=== PATIENT | male | born 1935 | race Asian ===

== ENCOUNTER 2019-11-11 15:38 | Inpatient (IN) | payer MEDICARE, OTHER ==
[~2019-11-11] VITALS: Ht 162.6 cm; Wt 58.5 kg
[2019-11-11] MEDS ORDERED: ATOR80TA PO (16:03)
[2019-11-11] MEDS ORDERED: LORA-258 PO (16:03)
[2019-11-11] MEDS ORDERED: LEVE500T20 PO (16:03)
[2019-11-11] MEDS ORDERED: BUSP5TAB3 PO (16:03)
[2019-11-11] MEDS ORDERED: TAMS-3 PO (16:03)
[2019-11-11] MEDS ORDERED: QUET50TA PO (16:03)
[2019-11-11] MEDS ORDERED: METO25TA6 PO (16:03)
[2019-11-11] MEDS ORDERED: MIRT15TA7 PO (16:03)
[2019-11-11] MEDS ORDERED: PROM118S5 PO (16:03)
[2019-11-11 16:17] LABS: BASOPHILS % (AUTO) 0.9 % (0.0-2.0); EOSINOPHILS # (AUTO) 0.1 K/uL (0.0-0.7); EOSINOPHILS % (AUTO) 2.5 % (0.0-7.0); HEMOGLOBIN 11.6 g/dL (12.5-16.3); LYMPHOCYTES # (AUTO) 1.4 K/uL (20.0-40.0); LYMPHOCYTES % (AUTO) 38.1 % (20.5-51.5); MEAN CORPUSCULAR HEMOGLOBIN 31.4 uug (23.8-33.4); MEAN CORPUSCULAR HGB CONC 34 g/dL (32.5-36.3); MEAN CORPUSCULAR VOLUME 92.2 fL (73.0-96.2); MONOCYTES # (AUTO) 0.5 K/uL (2.0-10.0); MONOCYTES % (AUTO) 12.3 % (0.0-11.0); NEUTROPHILS # (AUTO) 1.8 K/uL (1.8-8.9); NEUTROPHILS % (AUTO) 46.2 % (38.5-71.5); PLATELET COUNT (AUTO) 125 K/uL (152-348); RED BLOOD CELL COUNT(AUTO) 3.69 MIL/uL (4.06-5.63); WHITE BLOOD COUNT (AUTO) 3.8 K/uL (3.6-10.2)
[2019-11-11 16:21] LABS: CARBON DIOXIDE 29 mmol/L (21-32); CHLORIDE 106 mmol/L (98-107); CREATININE 1.1 mg/dL (0.6-1.3); GLUCOSE 115 mg/dL (74-106); POTASSIUM 3.8 mmol/L (3.5-5.1); UREA NITROGEN, BLOOD 13 mg/dL (7-18)
[2019-11-11 16:35] LABS: ALANINE AMINOTRANSFERASE 14 U/L (16-63); ALKALINE PHOSPHATASE 72 U/L (50-136); ASPARTATE AMINOTRANSFERASE 17 U/L (15-37); BILIRUBIN,DIRECT 0.2 mg/dL (0.0-0.2); BILIRUBIN,TOTAL 0.7 mg/dL (0.2-1.0); TOTAL PROTEIN, SERUM 6.6 g/dL (6.4-8.2)
[2019-11-11 16:37] LABS: ACETAMINOPHEN < 2.0 ug/mL (10-30); ETHANOL < 3 MG/DL (0-0)
[2019-11-11 16:59] LABS: *BILIRUBIN,URIN NEGATIVE (NEGATIVE); *KETONES,URINE NEGATIVE (NEGATIVE); *UROBILINOGEN,URINE 0.2 E.U./dl (NORMAL); LEUKOCYTE ESTERASE ,URINE 1+ (NEGATIVE); NITRITE, URINE NEGATIVE (NEGATIVE); PH,URINE 6.5 (5.0-8.0); UGLUCOSE NEGATIVE (NEGATIVE)
[2019-11-11 17:06] LABS: *BLOOD, URINE TRACE (NEGATIVE)
[2019-11-11 17:15] LABS: *AMPHETAMINE, URINE NEGATIVE (NEGATIVE); *BARBITURATE, URINE NEGATIVE (NEGATIVE); *CANNABINOID, URINE NEGATIVE (NEGATIVE); *COCCAINE, URINE NEGATIVE (NEGATIVE); *OPIATE, URINE NEGATIVE (NEGATIVE); *PHENCYCLIDINE SCREEN,URINE NEGATIVE (NEGATIVE)
[2019-11-11 17:17] LABS: *CLARITY,URINE HAZY (CLEAR); *COLOR,URINE YELLOW (YELLOW)
--- NOTE | 2019-11-11 17:23 | NUR ---
CALLED KARLA MENDOZA FOR PSYCH EVAL. ETA ONE HOUR
--- NOTE | 2019-11-11 17:30 | NUR ---
PT REQUESTING FOR URINAL, PROVIDED, URINE SENT TO LAB
[2019-11-11 17:34] LABS: BACTERIA,URINE FEW /HPF (NONE SEEN)
[2019-11-11 17:35] LABS: SQUAMOUS EPITHELIAL CELL,UR FEW /HPF (NONE SEEN)
--- NOTE | 2019-11-11 19:15 | NUR ---
spoke with outgoing nurse, stated mrsa swab collected and sent to lab.
--- NOTE | 2019-11-11 20:32 | NUR ---
Pt. admitted to MHU , under care of Dr. PEDERSON/TERESA Coronado List completed.
--- NOTE | 2019-11-11 20:33 | NUR ---
REPORT GIVEN TO LORI SANCHEZ.
[2019-11-11] MEDS ORDERED: MAGNESIUM HYDROXIDE 30 ML LIQUID UDC PO PRN (20:45)
[2019-11-11] MEDS ORDERED: MAG HYDROX/AL HYDROX/SIMETH 30 ML LIQUID UDC PO PRN (20:45)
[2019-11-11 22:02] VITALS: BP 165/84
[2019-11-11] MEDS ORDERED: [UNRECOGNIZED DRUG - OTHER] PO PRN (22:15)
[2019-11-11] MEDS ORDERED: D METHORPHAN HB PO PRN (22:15)
[2019-11-11] MEDS ORDERED: PROMETH HCL PO PRN (22:15)
--- NOTE | 2019-11-12 00:31 | NUR ---
GPS/RN: PT IS 84/YRS OLD MALE, BROUGHT TO MHU FROM ER VIA GURNEY AND ACCOMPANIED BY ER STAFF. PT ADMITTED ON A 5150 FOR GD, DTO. UNDER THE CARE OF DACIA PRITCHETT AND ATTENDING JODIE MOORE WITH PSYCHOSIS DX. PT A/OX2, SPEAKS SOME [place]. PER ADMISSION PT WAS AGGRESSIVE, AGITATION AND REFUSED MEDICATION OR FOODS FOR DAYS, AND THROW CUP OF WATER ON STAFFS WHEN ATTEMPTED TO PROVIDED CARE. UPON FACE TO FACE INTERVIEW, PT WAS UNCOOPERATIVE AND WAS VERY ANGRY WITH STAFFS OVER HIS SHOES. PT WAS UNABLE TO RESPOND TO QUESTIONS AND UNWILLING TO FOLLOW DIRECTION. V/S WAS STABLE EXCEPT BLOOD PRESSURE WHICH WAS A BIT ELEVATED. PT HX OF DX ARE: EPILEPSY, HTN, GERD, BPH, MAJOR DEPRESSION, SCHIZOPHRENIA, UTI, DEMENTIA AND WEAKNESS ON BLE AND DIFFICULTY WALKING. PT UNABLE TO STATE SI OR INTENT AT THIS TIME. PT BEHAVIOR WAS MANAGED WITH DEESCALATING BY LETTING HIM HAVE HIS SHOES WITHOUT SHOELACE. FAMILY/DAUGHTER WAS NOTIFIED OF ADMISSION. PT WILL BE MONITOR FOR SAFETY DUE TO BLE WEAKNESS AND UNSTABLE GAIT. ADVISEMENT WAS READ TO PT AND GIVEN, WITH NEW ADMISSION PACKAGE, PT RIGHT AND HAND BOOK IN BEDSIDE. Q15/MINS HEAD CHECK INITIATED AND ONGOING.
--- NOTE | 2019-11-12 06:31 | NUR ---
PT SLEPT ABOUT FOUR HOURS DURING NIGHT, PT AWAKE FREQUENTLY TO URINATE AT NIGHT, URINE COLOR DARK TAE YELLOWISH. REFUSED FOOD AND MEDICATIONS LAST NIGHT.
[2019-11-12 07:30] VITALS: BP 148/72
--- NOTE | 2019-11-12 08:46 | NUR ---
CALLED AND SPOKE WITH DR. MEEKS FOR PODIATRY CONSULT
[2019-11-12] MEDS: levETIRAcetam 500 MG TABLET PO SCH ×2 (09:25→16:59)
[2019-11-12] MEDS: METOPROLOL TARTRATE 25 MG TABLET PO SCH ×2 (09:27→17:00)
[2019-11-12] MEDS ORDERED: GUAIFENESIN/DEXTROMETHORPHAN 5 ML UDC PO PRN (09:45)
[2019-11-12] MEDS: CEphaleXIN 500 MG CAPSULE PO SCH ×2 (13:18→21:12)
[2019-11-12] MEDS: LORAZEPAM 1 MG TABLET PO PRN (13:27)
--- NOTE | 2019-11-12 13:52 | NUR ---
Family Contact: SW called the pts daughter, Deisy ([phone]), and received collateral information for the psychosocial assessment as the pt was too confused and disorganized to participate.
--- NOTE | 2019-11-12 14:35 | NUR ---
Initial Discharge Plan: Pt currently resides at [facility] located [place] [address] [place] [address]; . Per pts daughter, she would like the pt to return to the facility. SW will work with the pt and the MD regarding appropriate discharge planning. SW will form a safe and proper discharge.
--- NOTE | 2019-11-12 15:29 | NUR ---
Facility Contact: NATHANAEL contacted [facility] ([phone]) and left a message for Mya and confirmed that the pt can return to the facility once he is stable for discharge.
[2019-11-12 16:00] VITALS: BP 126/59
[2019-11-12 20:20] VITALS: BP 112/66
[2019-11-12] MEDS: DIVALPROEX 250 MG TABLET.DR PO SCH (21:12)
[2019-11-12] MEDS: ATORVASTATIN 40 MG TABLET PO SCH (21:12)
[2019-11-12] MEDS: risperiDONE 0.5 MG TABLET PO SCH (21:12)
[2019-11-12] MEDS: MIRTAZAPINE 15 MG TABLET PO SCH (21:12)
[2019-11-12] MEDS: TAMSULOSIN HCL 0.4 MG CAP.SR.24H PO SCH (21:12)
[2019-11-13] MEDS: CEphaleXIN 500 MG CAPSULE PO SCH ×3 (06:02→22:00)
[2019-11-13 07:30] VITALS: BP 117/73
[2019-11-13] MEDS: DIVALPROEX 250 MG TABLET.DR PO SCH ×2 (09:30→21:00)
[2019-11-13] MEDS: risperiDONE 0.5 MG TABLET PO SCH ×2 (09:31→21:00)
[2019-11-13] MEDS: METOPROLOL TARTRATE 25 MG TABLET PO SCH ×2 (09:31→17:00)
[2019-11-13] MEDS: levETIRAcetam 500 MG TABLET PO SCH ×2 (09:31→17:20)
[2019-11-13] MEDS: LORAZEPAM 1 MG TABLET PO PRN (13:29)
[2019-11-13 18:00] VITALS: BP 101/55
[2019-11-13 20:00] VITALS: BP 111/60
[2019-11-13] MEDS: TAMSULOSIN HCL 0.4 MG CAP.SR.24H PO SCH (21:00)
[2019-11-13] MEDS: MIRTAZAPINE 15 MG TABLET PO SCH (21:00)
[2019-11-13] MEDS: ATORVASTATIN 40 MG TABLET PO SCH (21:00)
--- NOTE | 2019-11-13 21:20 | NUR ---
Received patient while sitting in homa chair.Seems agitated, not compliant with medication. Started yelling when offering medications.Not-redirectable. Continue to monitor.
--- NOTE | 2019-11-14 04:21 | NUR ---
Patient refused all the medications including Depakote 250 mg, Flomax 0.4 mg, Lipitor 80 mg, Remeron 15 mg, Risperidone 0.5 mg, and Keflex 500 mg. Medications offered multiple times, each time he got upset and refused. Remeron and Risperidone were wasted because already opened, but the rest were returned. Dr. Elmore was aware about the refusing medications.
[2019-11-14] MEDS: CEphaleXIN 500 MG CAPSULE PO SCH ×3 (06:00→22:40)
--- NOTE | 2019-11-14 06:31 | NUR ---
Patient refused Keflex 500 mg. risks and benefits explained, still refused. The medication was returned.
[2019-11-14 07:30] VITALS: BP 123/74
--- NOTE | 2019-11-14 08:00 | NUR ---
Received patient by the nurses station sitting on homa-chair. No acute distress. Vital signs stable. Safety measures in place and will continue with care.
[2019-11-14] MEDS: METOPROLOL TARTRATE 25 MG TABLET PO SCH ×2 (09:00→17:00)
[2019-11-14] MEDS: DIVALPROEX 250 MG TABLET.DR PO SCH ×2 (10:15→20:17)
[2019-11-14] MEDS: risperiDONE 0.5 MG TABLET PO SCH ×2 (10:15→20:17)
[2019-11-14] MEDS: levETIRAcetam 500 MG TABLET PO SCH ×2 (10:15→17:26)
--- NOTE | 2019-11-14 13:30 | NUR ---
NATHANAEL Group Note: NATHANAEL conducted group therapy on Sunday11/14/2019 at 1330. The group topic was discharge planning. SW deemed the pt inappropriate for group participation due to confusion and his disorganized mental state. Pt is currently in a homa chair.
[2019-11-14] MEDS: ACETAMINOPHEN 325 MG TABLET PO PRN (14:57)
[2019-11-14 15:32] VITALS: BP 109/65
[2019-11-14] MEDS: LORAZEPAM 1 MG TABLET PO PRN (15:42)
--- NOTE | 2019-11-14 15:50 | NUR ---
Patient administered Ativan 1mg PO q 4hrs and tolerated well.
--- NOTE | 2019-11-14 18:30 | NUR ---
Patient is AAO x1, with episodes of confusion and agitation at times. Patient was cooperative with care, compliant with medication therapy and tolerated well. Skin kept clean and dry. Patient ambulatory but with assistance and BRP. Patient is with maximum assist for care. Skin kept clean and dry. Assisted with feeding. Patient ate well during shift. Safety measures in place, needs attended and will continue with care.
[2019-11-14] MEDS: TAMSULOSIN HCL 0.4 MG CAP.SR.24H PO SCH (20:17)
[2019-11-14] MEDS: ATORVASTATIN 40 MG TABLET PO SCH (20:17)
[2019-11-14] MEDS: MIRTAZAPINE 15 MG TABLET PO SCH (20:17)
[2019-11-14 21:08] VITALS: BP 110/61
[2019-11-15] MEDS: CEphaleXIN 500 MG CAPSULE PO SCH ×3 (06:27→21:20)
[2019-11-15 07:30] VITALS: BP 118/68
[2019-11-15] MEDS: LORAZEPAM 1 MG TABLET PO PRN ×2 (08:22→14:33)
[2019-11-15] MEDS: risperiDONE 0.5 MG TABLET PO SCH ×2 (08:41→20:10)
[2019-11-15] MEDS: DIVALPROEX 250 MG TABLET.DR PO SCH ×2 (08:41→20:11)
[2019-11-15] MEDS: levETIRAcetam 500 MG TABLET PO SCH ×2 (08:41→16:30)
[2019-11-15] MEDS: METOPROLOL TARTRATE 25 MG TABLET PO SCH ×2 (08:42→17:11)
[2019-11-15] MEDS: ACETAMINOPHEN 325 MG TABLET PO PRN (13:17)
[2019-11-15 16:00] VITALS: BP 118/63
--- NOTE | 2019-11-15 16:54 | NUR ---
GPS: Nursing Notes: Destructive Behavior Toward Others: Patient is awake and responding to his name, impaired judgment, resistant with nursing care, confused, restless, constantly trying to slide down the homa chair, unsteady gait, redirected and reoriented to reality, but gets easily irritable when redirected, grabbing peers when passing closed to him, garble and pressured speech, poor impulse control, unsteady gait, but constantly trying to stand up, when assisting him with ADL's, patient gets angry and starts pushing staff away, unable to formulate a viable plan for self care, continue with treatment plan.
[2019-11-15 20:00] VITALS: BP 121/57
[2019-11-15] MEDS: TAMSULOSIN HCL 0.4 MG CAP.SR.24H PO SCH (20:11)
[2019-11-15] MEDS: MIRTAZAPINE 15 MG TABLET PO SCH (20:11)
[2019-11-15] MEDS: ATORVASTATIN 40 MG TABLET PO SCH (20:11)
[2019-11-16] MEDS: CEphaleXIN 500 MG CAPSULE PO SCH ×3 (05:43→21:29)
--- NOTE | 2019-11-16 06:08 | NUR ---
Remain calm and cooperative with meds and care. continue on atb for uti.encouraged po intake. slept 7:30 through the night. assisted with adl's. resting in bed comfortably.
[2019-11-16 07:15] LABS: BASOPHILS % (AUTO) 0.6 % (0.0-2.0); EOSINOPHILS # (AUTO) 0.2 K/uL (0.0-0.7); EOSINOPHILS % (AUTO) 4.1 % (0.0-7.0); HEMATOCRIT 34.9 % (36.7-47.1); HEMOGLOBIN 11.9 g/dL (12.5-16.3); LYMPHOCYTES # (AUTO) 1.2 K/uL (20.0-40.0); LYMPHOCYTES % (AUTO) 27.1 % (20.5-51.5); MEAN CORPUSCULAR HEMOGLOBIN 31.3 uug (23.8-33.4); MEAN CORPUSCULAR HGB CONC 34 g/dL (32.5-36.3); MEAN CORPUSCULAR VOLUME 91.9 fL (73.0-96.2); MONOCYTES # (AUTO) 0.5 K/uL (2.0-10.0); NEUTROPHILS # (AUTO) 2.6 K/uL (1.8-8.9); NEUTROPHILS % (AUTO) 57.2 % (38.5-71.5); PLATELET COUNT (AUTO) 140 K/uL (152-348); WHITE BLOOD COUNT (AUTO) 4.5 K/uL (3.6-10.2)
[2019-11-16 07:30] VITALS: BP 136/72
[2019-11-16 07:35] LABS: BILIRUBIN,TOTAL 0.7 mg/dL (0.2-1.0); CREATININE 0.9 mg/dL (0.6-1.3); POTASSIUM 3.9 mmol/L (3.5-5.1); TOTAL PROTEIN, SERUM 6.2 g/dL (6.4-8.2)
[2019-11-16] MEDS: risperiDONE 0.5 MG TABLET PO SCH ×2 (08:58→20:20)
[2019-11-16] MEDS: levETIRAcetam 500 MG TABLET PO SCH ×2 (08:58→18:12)
[2019-11-16] MEDS: DIVALPROEX 250 MG TABLET.DR PO SCH ×2 (08:58→20:20)
[2019-11-16] MEDS: METOPROLOL TARTRATE 25 MG TABLET PO SCH ×2 (08:59→17:00)
[2019-11-16] MEDS: LORAZEPAM 1 MG TABLET PO PRN ×2 (15:15→21:29)
[2019-11-16 16:35] VITALS: BP 101/53
[2019-11-16] MEDS: MIRTAZAPINE 15 MG TABLET PO SCH (20:20)
[2019-11-16] MEDS: ATORVASTATIN 40 MG TABLET PO SCH (20:20)
[2019-11-16] MEDS: TAMSULOSIN HCL 0.4 MG CAP.SR.24H PO SCH (20:20)
[2019-11-16 20:29] VITALS: BP 100/53
[2019-11-16] MEDS: TEMAZEPAM 7.5 MG CAPSULE PO PRN (22:57)
[2019-11-17] MEDS: CEphaleXIN 500 MG CAPSULE PO SCH ×3 (05:37→21:49)
--- NOTE | 2019-11-17 06:16 | NUR ---
Slept 8.00 hours last night.
[2019-11-17 07:30] VITALS: BP 154/80
[2019-11-17] MEDS: levETIRAcetam 500 MG TABLET PO SCH ×3 (09:00→17:05)
[2019-11-17] MEDS: DIVALPROEX 250 MG TABLET.DR PO SCH ×3 (09:00→20:06)
[2019-11-17] MEDS: METOPROLOL TARTRATE 25 MG TABLET PO SCH ×3 (09:00→17:00)
[2019-11-17] MEDS: risperiDONE 0.5 MG TABLET PO SCH ×3 (09:00→20:05)
[2019-11-17] MEDS: LORAZEPAM 1 MG TABLET PO PRN ×2 (12:35→17:05)
[2019-11-17] MEDS: ACETAMINOPHEN 325 MG TABLET PO PRN ×2 (12:35→22:14)
[2019-11-17 16:00] VITALS: BP 109/58
--- NOTE | 2019-11-17 17:53 | NUR ---
GPS: Nursing Notes: Thought disorder: Patient is awake and responding to his name, impaired judgment, resistant with nursing care, trying to slide down the homa chair, poor impulse control at times, episodes of pulling his diaper and throwing on the floor, confused, unable to formulate a viable plan for self care, minimal participation in therapeutic groups, continue with treatment plan.
[2019-11-17 20:00] VITALS: BP 101/60
[2019-11-17] MEDS: ATORVASTATIN 40 MG TABLET PO SCH (20:05)
[2019-11-17] MEDS: MIRTAZAPINE 15 MG TABLET PO SCH (20:05)
[2019-11-17] MEDS: TAMSULOSIN HCL 0.4 MG CAP.SR.24H PO SCH (20:06)
[2019-11-18] MEDS: LORAZEPAM 1 MG TABLET PO PRN ×3 (03:27→12:41)
[2019-11-18] MEDS: CEphaleXIN 500 MG CAPSULE PO SCH ×3 (05:31→21:05)
--- NOTE | 2019-11-18 06:31 | NUR ---
PT SLEPT HOURS. PT IN NO ACUTE DISTRESS. PT PRESCRIBED MEDICATION GIVEN AND PT TOLERATED IT WELL. PT GIVEN TYLENOL PRN AT 2214H. RESTORIL GIVEN AT 2257H GIVEN PER NURSE ASSESSMENT. ATIVAN GIVEN PRN AT 0327H . PT YELLING,AND AGItATED. AFTER AN HOUR PT CALM DOWN AND WENT BACK TO SLEEP. PT TOLERATED IT WELL. . PT CONFUSED. NEEEDS REORIENTATION AND REDIRECTION. PT NEEDS ASSIST IN AMBULATING. PT GETTING OUT OF THE BED.PT TURNED AND REPOSITIONED.PT took a bath. SAFETY AND COMFORT PROVIDED. WILL ENDORSE TO INCOMING NURSE FOR CONTINUITY OF CARE. Addendum: 11/18/19 at 0632 by ARTURO ABRAMS RN NEED TO PUT 9HOURS OF SLEEP.
--- NOTE | 2019-11-18 06:32 | NUR ---
PT SLEPT 9 HOURS. PT IN NO ACUTE DISTRESS. PT PRESCRIBED MEDICATION GIVEN AND PT TOLERATED IT WELL. PT GIVEN TYLENOL PRN AT 2214H. RESTORIL GIVEN AT 2257H GIVEN PER NURSE ASSESSMENT. ATIVAN GIVEN PRN AT 0327H . PT YELLING,AND AGITATED. AFTER AN HOUR PT CALM DOWN AND WENT BACK TO SLEEP. PT TOLERATED IT WELL. . PT CONFUSED. NEEDS REORIENTATION AND REDIRECTION. PT NEEDS ASSIST IN AMBULATING. PT GETTING OUT OF THE BED.PT TURNED AND REPOSITIONED.PT TOOK A BATH. SAFETY AND COMFORT PROVIDED. WILL ENDORSE TO INCOMING NURSE FOR CONTINUITY OF CARE.
[2019-11-18 07:30] VITALS: BP 111/66
[2019-11-18] MEDS: DIVALPROEX 250 MG TABLET.DR PO SCH ×2 (09:06→21:04)
[2019-11-18] MEDS: levETIRAcetam 500 MG TABLET PO SCH ×2 (09:06→16:59)
[2019-11-18] MEDS: risperiDONE 0.5 MG TABLET PO SCH ×2 (09:06→21:05)
[2019-11-18] MEDS: METOPROLOL TARTRATE 25 MG TABLET PO SCH ×2 (09:07→17:00)
--- NOTE | 2019-11-18 10:20 | NUR ---
Probable Cause (PC) Hearing: Pts hold was upheld for grave disability.
[2019-11-18] MEDS: ACETAMINOPHEN 325 MG TABLET PO PRN (12:41)
--- NOTE | 2019-11-18 12:43 | NUR ---
Family Contact: NATHANAEL called the pts daughter, Deisy ([phone]), and provided her with an update on the pt. SW informed her that the pt is still confused but appears to be less aggressive. NATHANAEL also stated that the pt has been in a gerichair for a majority of the time. NATHANAEL confirmed that the discharge plan is still for the pt to be discharged back to [facility].
--- NOTE | 2019-11-18 12:52 | NUR ---
Facility Contact: NATHANAEL contacted [facility] ([phone]) and spoke to Winnie YapTime, who stated that the pt will be allowed to return but her servicenow administrator will have to readmit. NATHANAEL went over the medication changes with her and also informed her of the pts progress. NATHANAEL then asked if there is anything else that needs to be provided upon admission and it was stated that the pt needs to have a COVID test. NATHANAEL stated that she will get one for the pt.
[2019-11-18 15:14] VITALS: BP 140/68
[2019-11-18 20:00] VITALS: BP 136/59
--- NOTE | 2019-11-18 20:10 | NUR ---
Patient received into sitting in hallway in Linda-chair. Patient is alert/oriented x1 and has no s/s of acute distress or discomfort noted/observed by this nurse. All safety, fall, and GPS/MHU precautions are in place. Will continue to monitor and assess.
[2019-11-18] MEDS: TEMAZEPAM 7.5 MG CAPSULE PO PRN (21:05)
[2019-11-18] MEDS: TAMSULOSIN HCL 0.4 MG CAP.SR.24H PO SCH (21:05)
[2019-11-18] MEDS: ATORVASTATIN 40 MG TABLET PO SCH (21:05)
[2019-11-18] MEDS: MIRTAZAPINE 15 MG TABLET PO SCH (21:06)
[2019-11-19] MEDS: CEphaleXIN 500 MG CAPSULE PO SCH (06:05)
--- NOTE | 2019-11-19 06:40 | NUR ---
Patient slept 6 hours with no s/s of acute distress or discomfort noted or observed by this nurse. Pt was compliant with all medical, medication, and diet. Pt is currently still asleep in bed. All safety, fall, GPS/MHU, and fall precaution measures remain in place.
[2019-11-19 07:30] VITALS: BP 115/72
[2019-11-19] MEDS: CLONAZEPAM 0.5 MG TABLET PO SCH (09:23)
[2019-11-19] MEDS: DIVALPROEX 250 MG TABLET.DR PO SCH ×2 (09:24→20:44)
[2019-11-19] MEDS: METOPROLOL TARTRATE 25 MG TABLET PO SCH ×2 (09:25→17:00)
[2019-11-19] MEDS: levETIRAcetam 500 MG TABLET PO SCH ×2 (09:25→17:07)
[2019-11-19] MEDS: risperiDONE 0.5 MG TABLET PO SCH ×2 (09:25→20:44)
[2019-11-19 16:00] VITALS: BP 102/58
[2019-11-19 20:21] VITALS: BP 123/61
[2019-11-19] MEDS: TAMSULOSIN HCL 0.4 MG CAP.SR.24H PO SCH (20:44)
[2019-11-19] MEDS: MIRTAZAPINE 15 MG TABLET PO SCH (20:44)
[2019-11-19] MEDS: ATORVASTATIN 40 MG TABLET PO SCH (20:44)
--- NOTE | 2019-11-20 03:23 | NUR ---
Received patient while sitting in homa chair.Calm and cooperative. Compliant with medication. No behavioral issues. Redirectable. Continue to monitor.
[2019-11-20 07:30] VITALS: BP 120/69
[2019-11-20] MEDS: CLONAZEPAM 0.5 MG TABLET PO SCH (08:21)
[2019-11-20] MEDS: risperiDONE 0.5 MG TABLET PO SCH ×2 (08:22→20:11)
[2019-11-20] MEDS: DIVALPROEX 250 MG TABLET.DR PO SCH ×2 (08:22→20:11)
[2019-11-20] MEDS: METOPROLOL TARTRATE 25 MG TABLET PO SCH ×2 (08:22→17:23)
[2019-11-20] MEDS: levETIRAcetam 500 MG TABLET PO SCH ×2 (08:22→17:22)
[2019-11-20 15:25] VITALS: BP 132/56
[2019-11-20] MEDS: LORAZEPAM 1 MG TABLET PO PRN ×2 (15:35→21:44)
[2019-11-20] MEDS: TAMSULOSIN HCL 0.4 MG CAP.SR.24H PO SCH (20:11)
[2019-11-20] MEDS: MIRTAZAPINE 15 MG TABLET PO SCH (20:11)
[2019-11-20] MEDS: ATORVASTATIN 40 MG TABLET PO SCH (20:12)
--- NOTE | 2019-11-20 20:31 | NUR ---
Patient received while sitting in homa chair.Calm and cooperative. Compliant with medication. No behavioral issues. Redirectable. Continue to monitor.
[2019-11-20 20:53] VITALS: BP 110/60
[2019-11-20] MEDS: ACETAMINOPHEN 325 MG TABLET PO PRN (21:45)
[2019-11-21 07:30] VITALS: BP 128/73
[2019-11-21] MEDS: risperiDONE 0.5 MG TABLET PO SCH ×2 (08:41→21:12)
[2019-11-21] MEDS: DIVALPROEX 250 MG TABLET.DR PO SCH ×2 (08:41→21:12)
[2019-11-21] MEDS: levETIRAcetam 500 MG TABLET PO SCH ×2 (08:41→16:38)
[2019-11-21] MEDS: METOPROLOL TARTRATE 25 MG TABLET PO SCH ×2 (08:41→16:38)
[2019-11-21] MEDS: CLONAZEPAM 0.5 MG TABLET PO SCH ×2 (08:42→21:18)
[2019-11-21] MEDS: LORAZEPAM 1 MG TABLET PO PRN (14:29)
[2019-11-21 15:29] VITALS: BP 120/58
--- NOTE | 2019-11-21 15:50 | NUR ---
Family Contact: NATHANAEL called the pts daughter, Deisy ([phone]), and informed her that the pt is going to be discharged on Sunday back to [facility].
--- NOTE | 2019-11-21 16:20 | NUR ---
Facility Contact: NATHANAEL contacted [facility] ([phone]) and confirmed with a Med Tech that the pt can be discharged back to the facility on Sunday.
--- NOTE | 2019-11-21 17:33 | NUR ---
Received patient sleeping in bed in stable condition. Patient transfer to Linda chair for safety. Patient noted hitting the staff and slumming the gerichair table. Patient ativan 1mg PRN given with good effect. will continue monitor for safety.
[2019-11-21 20:00] VITALS: BP 128/68
[2019-11-21] MEDS: TAMSULOSIN HCL 0.4 MG CAP.SR.24H PO SCH (21:12)
[2019-11-21] MEDS: MIRTAZAPINE 15 MG TABLET PO SCH (21:12)
[2019-11-21] MEDS: ATORVASTATIN 40 MG TABLET PO SCH (21:13)
--- NOTE | 2019-11-22 07:26 | NUR ---
PATIENT AWAKE BUT CONFUSED, NO S/S OF PAIN NOTED. PATIENT HAS EPISODE OF RESTLESS IN BED, TAKES OUT DIAPER, AND CLOTHING, REDIRECT PATIENT, BUT NOT EFFECTIVE, FREQUENT VISUAL CHECK DONE, CONT TO MONITOR.
[2019-11-22 07:30] VITALS: BP 115/58
[2019-11-22] MEDS: risperiDONE 0.5 MG TABLET PO SCH ×2 (08:26→20:41)
[2019-11-22] MEDS: levETIRAcetam 500 MG TABLET PO SCH ×2 (08:27→16:05)
[2019-11-22] MEDS: CLONAZEPAM 0.5 MG TABLET PO SCH ×2 (08:27→20:46)
[2019-11-22] MEDS: DIVALPROEX 250 MG TABLET.DR PO SCH ×2 (08:28→20:41)
[2019-11-22] MEDS: METOPROLOL TARTRATE 25 MG TABLET PO SCH ×2 (08:28→16:05)
--- NOTE | 2019-11-22 08:50 | NUR ---
GPS: RECEIVED PATIENT AOX1, MALTESE SPEAKING ONLY, CALM COOPERATIVE, PATIENT COMPLIANT WITH MEDICATION
--- NOTE | 2019-11-22 09:07 | NUR ---
PATIENT WAS PUT BACK TO HIS BED, WITH BED ALARM ON , KEPT COMFORTABLE
[2019-11-22 16:00] VITALS: BP 97/61
--- NOTE | 2019-11-22 18:17 | NUR ---
patient been compliant assisted with ADLs, unsteady with ambulation ate dinner no Distress at this time
[2019-11-22] MEDS: MIRTAZAPINE 15 MG TABLET PO SCH (20:41)
[2019-11-22] MEDS: ATORVASTATIN 40 MG TABLET PO SCH (20:44)
[2019-11-22 21:08] VITALS: BP 121/71
[2019-11-22] MEDS: TAMSULOSIN HCL 0.4 MG CAP.SR.24H PO SCH (21:11)
--- NOTE | 2019-11-23 02:45 | NUR ---
PATIENT SLEEPING IN BED.APPEARS CONFUSED. NOT IN DISTRESS OR PAIN. COMPLIANT WITH CRUSHED MEDICATIONS. UNABLE TO HAVE MEANINGFUL MEDICATION SINCE HE IS ENGLISH SPEAKING. VISUAL CHECKS MADE ON HIM FOR SAFETY.WILL CONTINUE TO MONITOR.
--- NOTE | 2019-11-23 06:31 | NUR ---
SLEPT FOR ABOUT 8:15HOURS. ASSISTED IN TO THE ZAHEER CHAIR AND IS IN FRONT OF THE NURSES STATION.
[2019-11-23 07:30] VITALS: BP 109/59
[2019-11-23] MEDS: CLONAZEPAM 0.5 MG TABLET PO SCH ×2 (08:20→21:04)
[2019-11-23] MEDS: METOPROLOL TARTRATE 25 MG TABLET PO SCH ×2 (08:20→16:58)
[2019-11-23] MEDS: VALPROIC ACID 250 MG/5 ML LIQUID UDC PO SCH ×2 (08:20→21:03)
[2019-11-23] MEDS: levETIRAcetam 500 MG TABLET PO SCH ×2 (08:20→16:02)
[2019-11-23] MEDS: risperiDONE 0.5 MG TABLET PO SCH ×2 (08:20→21:03)
--- NOTE | 2019-11-23 08:30 | NUR ---
GPS: received patient Aox1, sitting on Linda Chair, unsteady with ambulation, maximum care and assisted with ADLs, patient need time to swallow and has tendency to choke , had a BM this morning
[2019-11-23] MEDS ORDERED: VALPROIC ACID 250 MG/5 ML LIQUID UDC GT SCH (09:00)
--- NOTE | 2019-11-23 12:39 | NUR ---
patient more alert, ask if he can talk to his daughter on the phone , called the daughter and left message
[2019-11-23] MEDS: LORAZEPAM 1 MG TABLET PO PRN (13:06)
[2019-11-23 15:21] VITALS: BP 102/56
--- NOTE | 2019-11-23 18:16 | NUR ---
seen and examined by Dr. Elmore, patient was more cooperative was able to tolerate his meals, patient was placed on his bed and more comfortable bed alarm was set , will continue monitor
[2019-11-23 20:16] VITALS: BP 104/59
[2019-11-23] MEDS: TAMSULOSIN HCL 0.4 MG CAP.SR.24H PO SCH (21:03)
[2019-11-23] MEDS: MIRTAZAPINE 15 MG TABLET PO SCH (21:03)
[2019-11-23] MEDS: ATORVASTATIN 40 MG TABLET PO SCH (21:06)
--- NOTE | 2019-11-24 00:02 | NUR ---
RECEIVED HIM AWAKE IN BED AND COULD BE HEARD MUMBLING TO HIMSELF. HE HAD ONE EPISODE OF TRYING TO CLIMB OVER HIS BED AND HITTING THE VENDOR REPRESENTATIVES WITH HIS FEET WHEN ATTEMPTS WERE MADE TO PUT HIM BACK. HE LATER CALMED DOWN AND WAS MED COMPLIANT. MEDICATIONS WERE CRUSHED HE HAS SOME DIFFICULTY SWALLOWING.WILL CONTINUE TO MONITOR.
--- NOTE | 2019-11-24 06:30 | NUR ---
HE SLEPT FOR ABOUT 8:45 HOURS.
[2019-11-24 07:30] VITALS: BP 119/62
--- NOTE | 2019-11-24 08:11 | NUR ---
Family Contact: SW called the pts daughter, Deisy ([phone]), and informed her that the pt is going to be discharged today and that the SW would like a call so that she can discuss the pts transportation.
[2019-11-24] MEDS: levETIRAcetam 500 MG TABLET PO SCH (08:49)
[2019-11-24] MEDS: risperiDONE 0.5 MG TABLET PO SCH (08:49)
[2019-11-24 08:50] VITALS: BP 119/62
[2019-11-24] MEDS: METOPROLOL TARTRATE 25 MG TABLET PO SCH (08:50)
[2019-11-24] MEDS: CLONAZEPAM 0.5 MG TABLET PO SCH (08:50)
[2019-11-24] MEDS: VALPROIC ACID 250 MG/5 ML LIQUID UDC PO SCH (08:54)
--- NOTE | 2019-11-24 09:52 | NUR ---
Family Contact: Pts daughter, Deisy ([phone]), called the SW and the SW stated that the pt is being discharged back to [facility] today and that the pt will be transported via [facility] that the hospital will pay for.
--- NOTE | 2019-11-24 09:54 | NUR ---
Facility Contact: NATHANAEL contacted [facility] ([phone]) and spoke to Mayco who stated that he would like a COVID test to be faxed over to the facility to [phone]. NATHANAEL faxed the negative results to that fax number.
--- NOTE | 2019-11-24 10:06 | NUR ---
Discharge Note: Pt was discharged to [facility] located at [address] [place] [address]; . Pt was transported around 12:45pm via [facility] ([phone]). Pts daughter, Deisy ([phone]), was made aware of the discharge and the transportation. Upon discharge, pt appeared to be oriented x1 (self). Pt appeared to be confused and disorganized which is the pts baseline. Pts suicidal and homicidal ideation are absent as well as the pts auditory and visual hallucinations. Pt appeared to be in a euthymic mood and presented with a calm affect. Pt appeared to be well groomed and appropriately dressed. Pt is nonambulatory and is total care. Pt will be under the care of his psychiatrist, Dr. Eliot Fuchs, located at [address], [place] [address] . Pt will be under the care of his intellectual property lawyer, Dr. Ira Carlos, located at [address] [address] .
--- NOTE | 2019-11-24 13:05 | NUR ---
GPS: Nursing Notes: Discharge Notes: Patient is awake and responding to his name, cooperative with nursing care, compliant with his medications, eating well, needs assistance with ADL's, denies any SI/HI, denies any AH/VH, denies any SOB, discharge to [address] [place] [address] . report given to Ava, [employer] prescriptions faxed per September request at , transported to facility via [facility] . firestop/containment worker informed his daughter, Deisy . Pt will be under the care of his psychiatrist, Dr. Eliot Fuchs, located at [address], [place] [address] . Pt will be under the care of his cold roll inspector, Dr. Ira Carlos, located at [address], [place] [address] .
--- NOTE | 2019-11-25 10:29 | NUR ---
Social Work Firearms Report ([employer]): Conditioner Tumbler Operator completed and submitted a [employer] firearms report for 5150 DTSO certification. A copy of report has been placed in patient chart.
== END 2019-11-24 13:05 | DRG 885 ==
LOC: ER 15:40 → GPS 20:32
PROVIDERS: ADMIT Psychiatry & Neurology Psychiatry; ATTEND Nurse Practitioner Acute Care
PROC: 0HBRXZZ Excision of Toe Nail, External Approach (ICD-10-PCS; principal; 2019-11-12)
DX: F39 Unspecified mood [affective] disorder (principal); D68.59 Other primary thrombophilia; E44.1 Mild protein-calorie malnutrition; N39.0 Urinary tract infection, site not specified; N40.0 Benign prostatic hyperplasia without lower urinary tract symptoms; G40.909 Epilepsy, unspecified, not intractable, without status epilepticus; F41.9 Anxiety disorder, unspecified; D63.8 Anemia in other chronic diseases classified elsewhere; M62.81 Muscle weakness (generalized); R73.9 Hyperglycemia, unspecified; E88.09 Other disorders of plasma-protein metabolism, not elsewhere classified; R13.10 Dysphagia, unspecified; F32.9 Major depressive disorder, single episode, unspecified; F03.90 Unspecified dementia, unspecified severity, without behavioral disturbance, psychotic disturbance, mood disturbance, and anxiety; F20.9 Schizophrenia, unspecified; B35.1 Tinea unguium; M20.41 Other hammer toe(s) (acquired), right foot; M20.42 Other hammer toe(s) (acquired), left foot; M62.562 Muscle wasting and atrophy, not elsewhere classified, left lower leg; M62.561 Muscle wasting and atrophy, not elsewhere classified, right lower leg; F29 Unspecified psychosis not due to a substance or known physiological condition
CPT/HCPCS: 36415; 80164; 80307; 80329; 83735; 85025; 87086; A4663; G0480; G0480-TC; J3490